=== PATIENT | female | born 1985 | race African-American/Black ===

== ENCOUNTER 2021-02-15 16:18 | Emergency (ER) | payer MEDICAID ==
--- NOTE | 2021-02-15 16:54 | EDM.PDOC ---
ED HPI GENERAL MEDICAL PROBLEM - General Chief Complaint: Abdominal Pain Stated Complaint: PREG AND ABDOMINAL PAIN Time Seen by Provider: 02/15/21 16:25 Source of Information: Reports: Patient, RN Notes Reviewed History Limitations: Reports: No Limitations - History of Present Illness INITIAL COMMENTS - FREE TEXT/NARRATIVE: Patient is a 35 year old female approximately 5 weeks gestation presenting to the ER with c/o intermittent low abdominal pain. She describes it as a dull ache to the bilateral lower and mid abdomen that comes and goes. She noticed that it occurs more frequently when she is lying down. Pain is not present at this time. She denies any nausea, vomiting, or diarrhea. She states that last week she was constipated, but she has been going fairly regularly this week. Denies any abnormal vaginal discharge. She saw her OBGYN, Dr. Tucker, on Friday and had blood work done. At that time, her HCG was 612. She discussed the abdominal pain with Dr. Tucker and was told that if it comes back to come to the ER. She has had no fever or chills. LMP was late December/early January. She reports that she had surgery to remove a "uterine mass" on December 29. Bilateral Lower Abdomen Pain Score (Numeric/FACES): 5 - Related Data Allergies Allergy/AdvReac Type Severity Reaction Status Date / Time No Known Allergies Allergy Verified 02/15/21 16:26 Home Meds: Home Meds . [No Known Home Meds] 02/15/21 [History] ED ROS GENERAL - Review of Systems Review Of Systems: See Below Constitutional: Reports: No Symptoms. Denies: Fever, Chills, Decreased Appetite HEENT: Reports: No Symptoms Respiratory: Reports: No Symptoms Cardiovascular: Reports: No Symptoms Endocrine: Reports: No Symptoms GI/Abdominal: Reports: Abdominal Pain (intermittent, dull, bilateral lower abdominal pain) ED EXAM, GI/ABD - Physical Exam Exam: See Below General Appearance: Alert, WD/WN, No Apparent Distress Respiratory/Chest: No Respiratory Distress, Lungs Clear, Normal Breath Sounds, No Accessory Muscle Use, Chest Non-Tender Cardiovascular: Normal Peripheral Pulses, Regular Rate, Rhythm, No Edema, No Gallop, No JVD, No Murmur, No Rub GI/Abdominal Exam: Normal Bowel Sounds, Soft, Non-Tender, No Organomegaly, No Distention, No Abnormal Bruit, No Mass, Pelvis Stable Neurological: Alert, Oriented, CN II-XII Intact, Normal Cognition, Normal Gait, Normal Reflexes, No Motor/Sensory Deficits Psychiatric: Normal Affect, Normal Mood Course - Vital Signs Last Recorded V/S: Last Vital Signs Temp 97.1 F 02/15/21 16:23 Pulse 100 02/15/21 16:23 Resp 17 02/15/21 16:23 BP 127/75 02/15/21 16:23 Pulse Ox 100 02/15/21 16:23 - Orders/Labs/Meds Labs: Laboratory Tests 02/15/21 02/15/21 02/15/21 Range/Units 16:50 16:50 18:00 WBC 8.60 (3.98-10.04) K/mm3 RBC 4.85 (3.98-5.22) M/mm3 Hgb 11.7 (11.2-15.7) gm/dl Hct 37.0 (34.1-44.9) % MCV 76.3 L (79.4-94.8) fl MCH 24.1 L (25.6-32.2) pg MCHC 31.6 L (32.2-35.5) g/dl RDW Std Deviation 39.3 (36.4-46.3) fL Plt Count 352 (182-369) K/mm3 MPV 9.1 L (9.4-12.3) fl Neut % (Auto) 56.1 (34.0-71.1) % Lymph % (Auto) 34.2 (19.3-51.7) % [place] % (Auto) 8.4 (4.7-12.5) % Eos % (Auto) 0.9 (0.7-5.8) Baso % (Auto) 0.3 (0.1-1.2) % Neut # (Auto) 4.82 (1.56-6.13) K/mm3 Lymph # (Auto) 2.94 (1.18-3.74) K/mm3 [place] # (Auto) 0.72 H (0.24-0.36) K/mm3 Eos # (Auto) 0.08 (0.04-0.36) K/mm3 Baso # (Auto) 0.03 (0.01-0.08) K/mm3 Sodium 140 (136-145) mEq/L Potassium 4.0 (3.5-5.1) mEq/L Chloride 103 (98-107) mEq/L Carbon Dioxide 26 (21-32) mEq/L Anion Gap 15.0 (5-15) BUN 18 (7-18) mg/dL Creatinine 1.0 (0.55-1.02) mg/dL Est Cr Clr Drug Dosing 69.10 mL/min Estimated GFR (MDRD) > 60 (>60) mL/min BUN/Creatinine Ratio 18.0 (14-18) Glucose 96 (74-106) mg/dL Calcium 9.2 (8.5-10.1) mg/dL Total Bilirubin 0.2 (0.2-1.0) mg/dL AST 14 L (15-37) U/L ALT 19 (14-59) U/L Alkaline Phosphatase 51 (46-116) U/L C-Reactive Protein 0.2 (<1.0) mg/dL Total Protein 7.4 (6.4-8.2) g/dl Albumin 3.4 (3.4-5.0) g/dl Globulin 4.0 gm/dL Albumin/Globulin Ratio 0.9 L (1-2) HCG, Quant 1805.0 mIU/mL Urine Color Yellow (Yellow) Urine Appearance Clear (Clear) Urine pH 7.0 (5.0-8.0) Ur Specific [place] 1.025 (1.005-1.030) Urine Protein Negative (Negative) Urine Glucose (UA) Negative (Negative) Urine Ketones Negative (Negative) Urine Occult Blood Negative (Negative) Urine Nitrite Negative (Negative) Urine Bilirubin Negative (Negative) Urine Urobilinogen 0.2 (0.2-1.0) Ur Leukocyte Esterase Negative (Negative) Urine RBC 0-5 (0-5) /hpf Urine WBC 0-5 (0-5) /hpf Ur Squamous Epith Cells 0-5 (0-5) /hpf Urine Bacteria Few (FEW) /hpf Urine Mucus Not seen (FEW) /hpf - Re-Assessments/Exams Free Text/Narrative Re-Assessment/Exam: Patient is a 35 year old aproximately 5 weeks gestation presenting to the ER with c/o intermittent, dull, bilateral lower abdominal pain. Pain is not present at the time of the exam. She states that she was constipated last week but has been regular this week. Denies fever, chills, nausea, vomiting, or diarrhea. I have ordered CBC, CMP, CMP, quantitative HCG, urinalysis, and a transvaginal pelvic u/s. 02/15/21 18:43 Hematology is grossly unremarkable. hCG is elevated at 1005 which is an increase from the 612 that it was on Friday. CRP and WBCs are normal. Urinalysis negative for infection. Pression of the OB ultrasound is as follows: 1. No intrauterine gestation sac or adnexal findings are seen. 2. Small corpus luteum cyst within the left ovary measuring 2.3 cm. Discussed findings with patient. While the exact cause of her intermittent pain is not known, I suspect that she could be suffering from constipation, however given her we are unable to complete an abdominal x-ray. She verbalized that she does have magnesium citrate at home. Recommend that she take this to see if having bowel movements improve her symptoms. Discussed if you should have worsening symptoms, she should return to ER otherwise follow-up with Dr. Giron. Discharge instructions as documented. Departure - Departure Time of Disposition: 18:43 Disposition: Home, Self-Care 01 Condition: Good Clinical Impression: Abdominal pain Qualifiers: Abdominal location: lower abdomen, unspecified Qualified Code(s): R10.30 - Lower abdominal pain, unspecified - Discharge Information *PRESCRIPTION DRUG MONITORING PROGRAM REVIEWED*: No *COPY OF PRESCRIPTION DRUG MONITORING REPORT IN PATIENT CAT[place]: No Instructions: Abdominal Pain, Adult, [id number] Referrals: Norma Velasquez NP [Primary Care Provider] - Forms: ED Department Discharge Additional Instructions: You were seen in the emergency department for evaluation of intermittent lower abdominal pain. Workup included blood work and a pelvic u/s. Results of your workup were found to be normal. Your HCG increased to 1,805. While the exact cause of your intermittent pain is not known, it is likely you are suffering from constipation. Recommend taking the bottle of magnesium citrate that your have at home. If you continue to have occasional pain, recommend followup with your OBGYN. If you should experience any new or worsening symptoms of concern, please not hesitate to return to the emergency department for reevaluation. Sepsis Event Note (ED) - Evaluation Sepsis Screening Result: No Definite Risk - Focused Exam Vital Signs: Vital Signs Temp Pulse Resp BP Pulse Ox 02/15/21 16:23 97.1 F 100 17 127/75 100
--- NOTE | 2021-02-15 17:28 | US ---
First trimester obstetrical ultrasound: Multiple real-time images were obtained transvaginally. No intrauterine gestational sac is seen. No adnexal abnormalities are noted. Left ovary shows a small cyst measuring 2.3 cm which is felt to represent a corpus luteum cyst. Right ovary is unremarkable. Impression: 1. No intrauterine gestational sac or adnexal findings are seen. 2. Small corpus luteum cyst within the left ovary measuring 2.3 cm. Diagnostic code #2
== END 2021-02-15 18:53 | disposition home or self-care (01) ==
LOC: JD.ED 16:18
DX: O99.891 Other specified diseases and conditions complicating pregnancy (principal); R10.31 Right lower quadrant pain; R10.32 Left lower quadrant pain; Z3A.01 Less than 8 weeks gestation of pregnancy
CPT/HCPCS: 36415; 76817; 76817-26; 80053; 81001; 84702; 85025; 86140; 99284; 99284-25

== ENCOUNTER 2021-02-23 19:15 | Emergency (ER) | payer MEDICAID ==
--- NOTE | 2021-02-23 19:41 | EDM.PDOC ---
ED HPI GENERAL MEDICAL PROBLEM - General Chief Complaint: Abdominal Pain Stated Complaint: ABDOMINAL PAIN Time Seen by Provider: 02/23/21 19:26 Source of Information: Reports: Patient History Limitations: Reports: No Limitations - History of Present Illness INITIAL COMMENTS - FREE TEXT/NARRATIVE: This is a 35-year-old female. She was here on the due to lower abdominal pain. She is thought to be approximately 5 weeks on the which would make her about 6 weeks tonight. She is a 2 para 1. On the her beta-hCG was [address] Giron and then on the her beta-hCG was 1805. When they did the ultrasound they did not see a get stational sac and she had a left corpus luteum cyst noted. She says today she has been having the pain since this morning and she had to do some orientation of some sort and did not get done until about now so she comes to the ER because of the pain. She does not appear to be in acute distress. She denies any fever or chills. Denies any nausea or vomiting. She denies any vaginal discharge. She denies any urinary symptoms. She was told to use mag citrate on the which she says she did and she has been having normal nonhard stools. Middle Abdomen Pain Score (Numeric/FACES): 7 - Related Data Allergies Allergy/AdvReac Type Severity Reaction Status Date / Time No Known Allergies Allergy Verified 02/23/21 19:25 Home Meds: Home Meds cephALEXin [Keflex] 500 mg PO Q8H #21 cap 02/23/21 [Rx] Past Medical History - Past Surgical History Female Surgical History: Reports: Other (See Below) Other Female Surgeries/Procedures: uterine mass removed Social & Family History - Family History Family Medical History: No Pertinent Family History - Caffeine Use Caffeine Use: Reports: None ED ROS GENERAL - Review of Systems Review Of Systems: See Below Constitutional: Denies: Fever, Chills HEENT: Reports: No Symptoms Respiratory: Reports: No Symptoms Cardiovascular: Reports: No Symptoms Endocrine: Reports: No Symptoms GI/Abdominal: Reports: Abdominal Pain. Denies: Constipation, Diarrhea, Nausea, Vomiting : Denies: Discharge, Dysuria, Flank Pain Musculoskeletal: Reports: No Symptoms Skin: Reports: No Symptoms Neurological: Reports: No Symptoms Psychiatric: Reports: No Symptoms Hematologic/Lymphatic: Reports: No Symptoms ED EXAM, GI/ABD - Physical Exam Exam: See Below Exam Limited By: No Limitations General Appearance: Alert, WD/WN, No Apparent Distress Eyes: Bilateral: Normal Appearance Ears: Normal External Exam Nose: Normal Inspection Throat/Mouth: Normal Lips, Normal Voice, No Airway Compromise Head: Normocephalic Neck: Supple Respiratory/Chest: No Respiratory Distress, Lungs Clear, Normal Breath Sounds Cardiovascular: Regular Rate, Rhythm, No Murmur GI/Abdominal Exam: Soft, Other (Lanes of tenderness in the suprapubic area on palpation but there is no masses noted there is no rebound no peritoneal signs. Even though she says the pain radiates to the right lower quadrant and left lower quadrant when I palpate those areas they do not appear to be very tender. No upper Abd pain) Back Exam: Normal Inspection, Full Range of Motion Extremities: Normal Inspection, Normal Range of Motion. No: Pedal Edema Neurological: Alert, Oriented Psychiatric: Normal Affect, Normal Mood Skin Exam: Warm, Dry Course - Vital Signs Last Recorded V/S: Last Vital Signs Temp 97.6 F 02/23/21 19:31 Pulse 102 H 02/23/21 19:31 Resp 18 02/23/21 19:31 BP 126/74 02/23/21 19:31 Pulse Ox 98 02/23/21 19:31 - Orders/Labs/Meds Orders: Active Orders 24 hr Category Date Time Status OB Transvaginal [US] Stat Exams 02/23/21 19:42 Taken Labs: Laboratory Tests 02/23/21 02/23/21 02/23/21 Range/Units 19:50 20:03 20:03 WBC 9.46 (3.98-10.04) K/mm3 RBC 5.14 (3.98-5.22) M/mm3 Hgb 12.4 (11.2-15.7) gm/dl Hct 38.8 (34.1-44.9) % MCV 75.5 L (79.4-94.8) fl MCH 24.1 L (25.6-32.2) pg MCHC 32.0 L (32.2-35.5) g/dl RDW Std Deviation 40.1 (36.4-46.3) fL Plt Count 312 (182-369) K/mm3 MPV 10.0 (9.4-12.3) fl Neut % (Auto) 65.3 (34.0-71.1) % Lymph % (Auto) 26.4 (19.3-51.7) % [place] % (Auto) 6.8 (4.7-12.5) % Eos % (Auto) 1.1 (0.7-5.8) Baso % (Auto) 0.2 (0.1-1.2) % Neut # (Auto) 6.18 H (1.56-6.13) K/mm3 Lymph # (Auto) 2.50 (1.18-3.74) K/mm3 [place] # (Auto) 0.64 H (0.24-0.36) K/mm3 Eos # (Auto) 0.10 (0.04-0.36) K/mm3 Baso # (Auto) 0.02 (0.01-0.08) K/mm3 Sodium 141 (136-145) mEq/L Potassium 3.8 (3.5-5.1) mEq/L Chloride 104 (98-107) mEq/L Carbon Dioxide 27 (21-32) mEq/L Anion Gap 13.8 (5-15) BUN 20 H (7-18) mg/dL Creatinine 1.0 (0.55-1.02) mg/dL Est Cr Clr Drug Dosing 69.10 mL/min Estimated GFR (MDRD) > 60 (>60) mL/min BUN/Creatinine Ratio 20.0 H (14-18) Glucose 114 H (74-106) mg/dL Calcium 9.0 (8.5-10.1) mg/dL Total Bilirubin 0.2 (0.2-1.0) mg/dL AST 16 (15-37) U/L ALT 16 (14-59) U/L Alkaline Phosphatase 51 (46-116) U/L C-Reactive Protein <0.2 (<1.0) mg/dL Total Protein 7.2 (6.4-8.2) g/dl Albumin 3.4 (3.4-5.0) g/dl Globulin 3.8 gm/dL Albumin/Globulin Ratio 0.9 L (1-2) HCG, Quant 4321.0 mIU/mL Urine Color Yellow (Yellow) Urine Appearance Slt cloudy H (Clear) Urine pH 6.0 (5.0-8.0) Ur Specific [place] > or = 1.030 (1.005-1.030) Urine Protein Negative (Negative) Urine Glucose (UA) Negative (Negative) Urine Ketones Negative (Negative) Urine Occult Blood Negative (Negative) Urine Nitrite Negative (Negative) Urine Bilirubin Negative (Negative) Urine Urobilinogen 0.2 (0.2-1.0) Ur Leukocyte Esterase Trace H (Negative) Urine RBC 0-5 (0-5) /hpf Urine WBC 10-20 H (0-5) /hpf Ur Squamous Epith Cells 5-10 H (0-5) /hpf Urine Bacteria Moderate H (FEW) /hpf Urine Mucus Few (FEW) /hpf - Radiology Interpretation Free Text/Narrative:: The ultrasound tonight suggests an early gestational sac in the uterine fundal endometrial cavity that looks like is about 5 weeks gestational age. The left ovarian cyst is still present. There is no pelvic fluid and there is no ovarian torsion. - Re-Assessments/Exams Free Text/Narrative Re-Assessment/Exam: 02/23/21 21:34 Blood work appears to be normal. Her beta hCG on 02/12 was 612, 02/15 it was 1805, tonight 02/22 it is 4321. 02/23/21 21:35 Patient's urine suggest a mild urinary tract infection as well. 02/23/21 22:09 I spoke to the patient regarding the ultrasound results that she is approximately 5 weeks and the get stational sac can be seen in the uterus. I also let her know that her beta-hCG was 4321. She needs to follow-up with Dr. Giron. I will provide some antibiotics for her urinary tract infection. Departure - Departure Time of Disposition: 22:10 Disposition: Home, Self-Care 01 Condition: Good Clinical Impression: Normal intrauterine on ultrasound in first trimester, Bilateral lower abdominal discomfort Urinary tract infection Qualifiers: Urinary tract infection type: acute cystitis Hematuria presence: without hematuria Qualified Code(s): N30.00 - Acute cystitis without hematuria - Discharge Information *PRESCRIPTION DRUG MONITORING PROGRAM REVIEWED*: Not Applicable *COPY OF PRESCRIPTION DRUG MONITORING REPORT IN PATIENT [place]: Not Applicable Prescriptions: cephALEXin [Keflex] 500 mg PO Q8H #21 cap Instructions: First Trimester of , [id number], Urinary Tract Infection, Adult, [id number] Referrals: Sybil Tucker MD [Physician] - Forms: ED Department Discharge Additional Instructions: You were seen in the emergency room for lower abdominal pain. We found that you are 5 weeks and it is in the uterus where it needs to be. We also found that you have a urinary tract infection and that you need to drink more water because your urine is very concentrated. Get the antibiotics and take them 3 times a day until they are finished to help with the urinary tract infection. Follow-up with Dr. Giron your OB doctor recheck of your and the urinary tract infection, return to the ER if needed. Sepsis Event Note (ED) - Evaluation Sepsis Screening Result: No Definite Risk - Focused Exam Vital Signs: Vital Signs Temp Pulse Resp BP Pulse Ox 02/23/21 19:31 97.6 F 102 H 18 126/74 98 - My Orders Last 24 Hours: My Active Orders 02/23/21 19:42 OB Transvaginal [US] Stat - Assessment/Plan Last 24 Hours: My Active Orders 02/23/21 19:42 OB Transvaginal [US] Stat
--- NOTE | 2021-02-25 11:51 | US ---
First trimester obstetrical ultrasound: Multiple real-time images were obtained transvaginally. Uterus is anteverted. Possible minimal gestational sac is noted measuring about 0.34 cm correlating to 5 weeks 0 days. Sac is too small to identify any other components. Ovaries appear within normal limits for the patient's age. Impression: 1. Very small gestational sac correlating to approximately 5 weeks and 0 days. 2. Consider repeating ultrasound exam in 11-14 days to confirm normal developing . Diagnostic code #2 I agree with preliminary report from [facility], finalized on 02/23/21, 10:58 PM CDT
== END 2021-02-23 22:25 | disposition home or self-care (01) ==
LOC: JD.ED 19:15
DX: O23.11 Infections of bladder in pregnancy, first trimester (principal); Z3A.01 Less than 8 weeks gestation of pregnancy
CPT/HCPCS: 36415; 76817; 76817-26; 80053; 81001; 84702; 85025; 86140; 99283; 99284-25

== ENCOUNTER 2021-03-01 18:29 | Emergency (ER) | payer MEDICAID ==
--- NOTE | 2021-03-01 19:33 | EDM.PDOC ---
ED HPI GENERAL MEDICAL PROBLEM - General Chief Complaint: [facility] Problem Stated Complaint: 6 WEEKS PREG BLEEDING AND CRAMPING Time Seen by Provider: 03/01/21 19:11 Source of Information: Reports: Patient, RN Notes Reviewed History Limitations: Reports: No Limitations - History of Present Illness INITIAL COMMENTS - FREE TEXT/NARRATIVE: Patient is a 35-year-old female who presents to the ED for the evaluation of her and vaginal bleeding and low abdomen cramping. Patient states she is roughly 6 weeks , she is a G2, P1, CHUR[facility] is Dr. Tucker. Patient notes that she was seen last week in this ER for-like symptoms when she was around 5 weeks , she did have ultrasound done at that time, did demonstrate a small gestational sac. Patient notes things have been okay, until she developed some vaginal bleeding, when she went to the bathroom, when she wiped she noticed some blood on the toilet paper. She states that she may have passed 1 small clot after showering today. Patient states that she works for [employer], and she usually gets up around 3 or 4 in the morning, and after about 2 or 3 hours of being at work, she developed low back pain. She is not sure if this is complicating things. Patient denies any dysuria, frequency or urgency. She does state that she is having some lower abdomen pain, but it does not seem to be intensifying. She has had no fevers or chills, cough or shortness of breath, nausea/vomiting/diarrhea. Lower Abdomen Pain Score (Numeric/FACES): 3 - Related Data Allergies Allergy/AdvReac Type Severity Reaction Status Date / Time No Known Allergies Allergy Verified 03/01/21 19:06 Home Meds: Home Meds cephALEXin [Keflex] 500 mg PO Q8H #21 cap 02/23/21 [Rx] Past Medical History : 2 Para: 1 LMP (Approximate): - Past Surgical History Female Surgical History: Reports: Other (See Below) Other Female Surgeries/Procedures: uterine mass removed Social & Family History - Family History Family Medical History: No Pertinent Family History - Tobacco Use Tobacco Use Status *Q: Never Tobacco User Second Hand Smoke Exposure: No - Caffeine Use Caffeine Use: Reports: None - Recreational Drug Use Recreational Drug Use: No ED ROS GENERAL - Review of Systems Review Of Systems: Comprehensive ROS is negative, except as noted in HPI. ED EXAM - Physical Exam Exam: See Below Exam Limited By: No Limitations General Appearance: Alert, WD/WN, No Apparent Distress Respiratory/Chest: No Respiratory Distress, Lungs Clear, Normal Breath Sounds, No Accessory Muscle Use, Chest Non-Tender Cardiovascular: Normal Peripheral Pulses, Regular Rate, Rhythm, No Edema GI/Abdominal Exam: Normal Bowel Sounds, Soft, Non-Tender, No Distention, No Mass Heart Tones: Not Foster Movement: Not Appreciated Neurological: Alert, Oriented, Normal Cognition, No Motor/Sensory Deficits Psychiatric: Normal Affect, Normal Mood Skin Exam: Warm, Dry, Intact, Normal Color, No Rash Course - Vital Signs Last Recorded V/S: Last Vital Signs Temp 98.5 F 03/01/21 19:00 Pulse 90 03/01/21 19:00 Resp 16 03/01/21 19:00 BP 121/71 03/01/21 19:00 Pulse Ox 100 03/01/21 19:00 - Orders/Labs/Meds Orders: Active Orders 24 hr Category Date Time Status ABO/RH TYPE [BBK] Stat Lab 03/01/21 19:30 Received Labs: Laboratory Tests 03/01/21 03/01/21 Range/Units 19:30 20:06 HCG, Quant 6600.0 mIU/mL Urine Color Yellow (Yellow) Urine Appearance Clear (Clear) Urine pH 8.5 H (5.0-8.0) Ur Specific [place] 1.020 (1.005-1.030) Urine Protein Trace H (Negative) Urine Glucose (UA) Negative (Negative) Urine Ketones Negative (Negative) Urine Occult Blood Negative (Negative) Urine Nitrite Negative (Negative) Urine Bilirubin Negative (Negative) Urine Urobilinogen 0.2 (0.2-1.0) Ur Leukocyte Esterase Negative (Negative) Urine RBC 0-5 (0-5) /hpf Urine WBC 0-5 (0-5) /hpf Ur Squamous Epith Cells 0-5 (0-5) /hpf Urine Bacteria Few (FEW) /hpf Urine Mucus Few (FEW) /hpf - Re-Assessments/Exams Free Text/Narrative Re-Assessment/Exam: 03/01/21 19:33 Patient presents to the ED for evaluation of her vaginal bleeding and . We will go ahead and get a quantitative hCG for today's purposes, run a urinalysis that she provided a sample. And we will repeat a transvaginal ultrasound. 03/01/21 19:37 Review of the patient's last visit demonstrated that she had a small UTI and was placed on a course of Keflex 500 mg 3 times daily for 7 days. Her hCG at last visit was 4321. 03/01/21 20:28 The patient's ultrasound has come back, there is a small intrauterine gestational sac, it slightly increased from prior exam but no pole or yolk sac is seen at this time yet this does not confirm a normal . The patient's hCG is 6600, patient was seen here roughly 5 days ago. 03/01/21 20:37 I did call and talk with Dr. Bender our [facility] on-call, and he states that this is not an uncommon finding. He does note that she should probably have a repeat ultrasound and appointment with Dr. Tucker may be next week Friday or the or . I do not see any sort of blood typing that has been done in the past while she has been here we will go ahead and do a quick ABO Rh type on the blood that has already been taken from her. Departure - Departure Time of Disposition: 20:38 Disposition: Home, Self-Care 01 Condition: Good Clinical Impression: Vaginal bleeding in - Discharge Information *PRESCRIPTION DRUG MONITORING PROGRAM REVIEWED*: No *COPY OF PRESCRIPTION DRUG MONITORING REPORT IN PATIENT [place]: No Instructions: Abdominal Pain During , [id number] Referrals: Sybil Tucker MD [Primary Care Provider] - Forms: ED Department Discharge, ED Return to Work/School Form Additional Instructions: You were evaluated in the ER today regarding your abdominal pain/vaginal bleeding in . You did have some labs drawn, your hCG level was 6600 , your blood type is ( ). Your ultrasound demonstrated an intrauterine gestational sac; but this is somewhat early and a heartbeat was not identified at today's visit. Your case was discussed with our on-call [facility] doctor, and he does recommend that you schedule an appoint with Dr. Tucker for next week Friday or , this would be March 07 or for repeat ultrasound. Recommend that you do not lift anything heavier than a gallon of milk (5 lbs), do not engage in sexual activities, try to get as much pelvic rest as possible for the next few days. Please try not to exert yourself, rest and relax, and take it easy. If you are bleeding through more than 1-2 maxi pads every couple hours, this would be cause for concern to return to the ER for immediate management. Please return to the ED at any time if your symptoms change or worsen. Sepsis Event Note (ED) - Evaluation Sepsis Screening Result: No Definite Risk - Focused Exam Vital Signs: Vital Signs Temp Pulse Resp BP Pulse Ox 03/01/21 19:00 98.5 F 90 16 121/71 100 - My Orders Last 24 Hours: My Active Orders 03/01/21 19:30 ABO/RH TYPE [BBK] Stat - Assessment/Plan Last 24 Hours: My Active Orders 03/01/21 19:30 ABO/RH TYPE [BBK] Stat
--- NOTE | 2021-03-01 20:25 | US ---
First trimester obstetrical ultrasound: Multiple real-time images were obtained transvaginally. Comparison: Prior study of 02/23/21. Single intrauterine gestational sac is seen. Sac size is slightly increased in size from prior study but no pole or yolk sac is seen. Both maternal ovaries are seen and appear within normal limits. Measurements: Mean sac diameter: 6 mm - out of range Impression: 1. Small intrauterine gestational sac. Gestational sac has slightly increased from prior exam. No pole or yolk sac is seen. This does not confirm a normal at this time. 2. No additional abnormality is appreciated. Diagnostic code #3
== END 2021-03-01 20:59 | disposition home or self-care (01) ==
LOC: JD.ED 18:29
DX: O20.9 Hemorrhage in early pregnancy, unspecified (principal); Z3A.01 Less than 8 weeks gestation of pregnancy
CPT/HCPCS: 36415; 76817; 76817-26; 81001; 84702; 86900; 86901; 99283; 99284-25

== ENCOUNTER 2021-03-03 12:01 | Emergency (ER) | payer MEDICAID ==
--- NOTE | 2021-03-03 14:26 | EDM.PDOC ---
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 The patient was evaluated in this emergency department 2 days ago. Labs and transvaginal ultrasound were completed. Patient returns today for similar complaints. She states that the bleeding has not gotten any heavier and the cramps have not worsened. Patient states she is going through about 1 pantiliner every 3 hours. She states she does have some mild abdominal cramping and has not taken anything for the discomfort. She denies any recent fever, chills, nausea, vomiting or diarrhea. She denies passing any clots per vagina. Pelvic Pain Score (Numeric/FACES): 6 - Related Data Allergies Allergy/AdvReac Type Severity Reaction Status Date / Time No Known Allergies Allergy Verified 03/03/21 12:26 Home Meds: Home Meds cephALEXin [Keflex] 500 mg PO Q8H #21 cap 02/23/21 [Rx] Past Medical History - Past Surgical History Female Surgical History: Reports: Other (See Below) Other Female Surgeries/Procedures: uterine mass removed Social & Family History - Family History Family Medical History: No Pertinent Family History - Tobacco Use Tobacco Use Status *Q: Never Tobacco User Second Hand Smoke Exposure: No - Caffeine Use Caffeine Use: Reports: None - Recreational Drug Use Recreational Drug Use: No ED ROS GENERAL - Review of Systems Review Of Systems: Comprehensive ROS is negative, except as noted in HPI. ED EXAM - Physical Exam Exam: See Below Exam Limited By: No Limitations General Appearance: Alert, WD/WN, No Apparent Distress Ears: Normal External Exam, Hearing Grossly Normal Nose: Normal Inspection Throat/Mouth: Normal Inspection, Normal Lips, Normal Voice, No Airway Compromise Head: Atraumatic, Normocephalic Neck: Normal Inspection, Supple, Non-Tender, Full Range of Motion Respiratory/Chest: No Respiratory Distress, Lungs Clear, Normal Breath Sounds, No Accessory Muscle Use, Chest Non-Tender Cardiovascular: Normal Peripheral Pulses, Regular Rate, Rhythm, No Edema, No Murmur GI/Abdominal Exam: Normal Bowel Sounds, Soft, Non-Tender, No Distention Rectal Exam: Deferred (Female) Exam: Other (exam not compleded due to visit two days ago in the ED) Extremities: Normal Inspection, Normal Range of Motion, Non-Tender, No Pedal Edema, Normal Capillary Refill Neurological: Alert, Oriented, Normal Cognition Psychiatric: Normal Affect, Normal Mood Skin Exam: Warm, Dry, Intact, Normal Color, No Rash Lymphatic: No Adenopathy Course - Vital Signs Text/Narrative:: As patient was recently evaluated in the emergency department 2 days ago and had labs and transvaginal ultrasound completed. I will repeat lab studies today however I do not feel it is prudent to repeat the transvaginal ultrasound as the patient symptoms have not worsened or changed. 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 At the time of my assessment patient is not tachycardic or hypotensive. Last Recorded V/S: Last Vital Signs Temp 97.7 F 03/03/21 12:23 Pulse 82 03/03/21 12:23 Resp 18 03/03/21 12:23 BP 121/80 03/03/21 12:23 Pulse Ox 100 03/03/21 12:23 - Orders/Labs/Meds Labs: Laboratory Tests 03/03/21 03/03/21 03/03/21 Range/Units 12:53 12:53 12:53 WBC 6.11 (3.98-10.04) K/mm3 RBC 5.33 H (3.98-5.22) M/mm3 Hgb 12.8 (11.2-15.7) gm/dl Hct 40.7 (34.1-44.9) % MCV 76.4 L (79.4-94.8) fl MCH 24.0 L (25.6-32.2) pg MCHC 31.4 L (32.2-35.5) g/dl RDW Std Deviation 40.2 (36.4-46.3) fL Plt Count 313 (182-369) K/mm3 MPV 9.0 L (9.4-12.3) fl Neut % (Auto) 61.0 (34.0-71.1) % Lymph % (Auto) 29.8 (19.3-51.7) % [place] % (Auto) 7.7 (4.7-12.5) % Eos % (Auto) 1.1 (0.7-5.8) Baso % (Auto) 0.2 (0.1-1.2) % Neut # (Auto) 3.73 (1.56-6.13) K/mm3 Lymph # (Auto) 1.82 (1.18-3.74) K/mm3 [place] # (Auto) 0.47 H (0.24-0.36) K/mm3 Eos # (Auto) 0.07 (0.04-0.36) K/mm3 Baso # (Auto) 0.01 (0.01-0.08) K/mm3 HCG, Quant 7568.0 mIU/mL Urine Color (Yellow) Urine Appearance (Clear) Urine pH (5.0-8.0) Ur Specific [place] (1.005-1.030) Urine Protein (Negative) Urine Glucose (UA) (Negative) Urine Ketones (Negative) Urine Occult Blood (Negative) Urine Nitrite (Negative) Urine Bilirubin (Negative) Urine Urobilinogen (0.2-1.0) Ur Leukocyte Esterase (Negative) Urine RBC (0-5) /hpf Urine WBC (0-5) /hpf Ur Epithelial Cells (0-5) /hpf Urine Bacteria (FEW) /hpf Urine Mucus (FEW) /hpf Blood Type A POSITIVE 03/03/21 Range/Units 13:40 WBC (3.98-10.04) K/mm3 RBC (3.98-5.22) M/mm3 Hgb (11.2-15.7) gm/dl Hct (34.1-44.9) % MCV (79.4-94.8) fl MCH (25.6-32.2) pg MCHC (32.2-35.5) g/dl RDW Std Deviation (36.4-46.3) fL Plt Count (182-369) K/mm3 MPV (9.4-12.3) fl Neut % (Auto) (34.0-71.1) % Lymph % (Auto) (19.3-51.7) % [place] % (Auto) (4.7-12.5) % Eos % (Auto) (0.7-5.8) Baso % (Auto) (0.1-1.2) % Neut # (Auto) (1.56-6.13) K/mm3 Lymph # (Auto) (1.18-3.74) K/mm3 [place] # (Auto) (0.24-0.36) K/mm3 Eos # (Auto) (0.04-0.36) K/mm3 Baso # (Auto) (0.01-0.08) K/mm3 HCG, Quant mIU/mL Urine Color Yellow (Yellow) Urine Appearance Clear (Clear) Urine pH 6.0 (5.0-8.0) Ur Specific [place] 1.025 (1.005-1.030) Urine Protein Negative (Negative) Urine Glucose (UA) Negative (Negative) Urine Ketones Negative (Negative) Urine Occult Blood 2+ H (Negative) Urine Nitrite Negative (Negative) Urine Bilirubin Negative (Negative) Urine Urobilinogen 0.2 (0.2-1.0) Ur Leukocyte Esterase Negative (Negative) Urine RBC 5-10 H (0-5) /hpf Urine WBC 0-5 (0-5) /hpf Ur Epithelial Cells 0-5 (0-5) /hpf Urine Bacteria Moderate H (FEW) /hpf Urine Mucus Rare (FEW) /hpf Blood Type - Re-Assessments/Exams Free Text/Narrative Re-Assessment/Exam: 03/03/21 14:22 Hematology reveals a WBC of 6.11, hemoglobin 12.8, hematocrit 40.7, quantitative hCG is 7568 (HCG from 2 days ago was 6600) Urinalysis shows 2+ blood and 5-10 RBC. At this time patient is only spotting. She states she is going through a panty liner every 2-3 hours. Recommend she be discharged to home with follow-up in her appointment be kept with Dr. Giron Friday of this week. 03/03/21 14:29 The patient will be discharged home with recommendations that she go home and rest. Should her cramping decrease in severity or bleeding increased to 3-4 pads every hour with clots it is strongly recommended that she return to the emergency department. Departure - Departure Time of Disposition: 14:24 Disposition: Home, Self-Care 01 Condition: Good Clinical Impression: Vaginal bleeding in - Discharge Information Referrals: Sybil Tucker MD [Primary Care Provider] - Forms: ED Department Discharge Additional Instructions: You were seen in the emergency department today with complaints of vaginal bleeding at 6 weeks into your . Lab work was completed as well as your hCG levels. These levels have increased since you were seen 2 days ago in the emergency department. You have been discharged to home. Recommend that you go home and rest, put your feet up, do not do any strenuous activity which includes heavy lifting greater than 10 pounds or sexual intercourse. Drink plenty of fluids. may take Tylenol 650 mg every 4 hours as needed for the cramping. Should your cramping become severe and is not relieved by the Tylenol or you start going through 3-4 pads per hour with clots, it is strongly recommended that you return to the emergency department for reevaluation. Otherwise keep your scheduled appointment with Dr. Tucker on Friday of this week for further evaluation. Sepsis Event Note (ED) - Evaluation Sepsis Screening Result: No Definite Risk - Focused Exam Vital Signs: Vital Signs Temp Pulse Resp BP Pulse Ox 03/03/21 12:23 97.7 F 82 18 121/80 100
== END 2021-03-03 15:00 | disposition home or self-care (01) ==
LOC: JD.ED 12:01
DX: O20.9 Hemorrhage in early pregnancy, unspecified (principal); Z3A.01 Less than 8 weeks gestation of pregnancy
CPT/HCPCS: 36415; 81001; 84702; 85025; 86900; 86901; 99283; 99284

== ENCOUNTER 2021-03-05 14:58 | Emergency (ER) | payer MEDICAID ==
--- NOTE | 2021-03-05 17:28 | EDM.PDOC ---
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 She is at 6 weeks gestation. She has been here a few times in the past week. Her last visit was 2 says ago. She has been having spotting. She had an US a couple days ago and it showed a possible gestational sac but no pole. Her HCG was 7,568. She left and passed a few clots and possibly some tissue. She has been bleeding heavily since. She soaks a pad every 2 hours and she has some cramping. Onset: Gradual Duration: Day(s): Location: Reports: Pelvis Quality: Reports: Other (cramping) Severity: Moderate Improves with: Reports: None Worsens with: Reports: None Associated Symptoms: Reports: No Other Symptoms - Related Data Allergies Allergy/AdvReac Type Severity Reaction Status Date / Time No Known Allergies Allergy Verified 03/05/21 15:27 Home Meds: Home Meds cephALEXin [Keflex] 500 mg PO Q8H #21 cap 02/23/21 [Rx] Past Medical History - Past Surgical History Female Surgical History: Reports: Other (See Below) Other Female Surgeries/Procedures: uterine mass removed Social & Family History - Family History Family Medical History: No Pertinent Family History - Tobacco Use Tobacco Use Status *Q: Never Tobacco User - Caffeine Use Caffeine Use: Reports: None - Recreational Drug Use Recreational Drug Use: No ED ROS GENERAL - Review of Systems Review Of Systems: See Below Constitutional: Reports: No Symptoms HEENT: Reports: No Symptoms Respiratory: Reports: No Symptoms Cardiovascular: Reports: No Symptoms Endocrine: Reports: No Symptoms GI/Abdominal: Reports: No Symptoms : Reports: Other (pelvic pain) ED EXAM - Physical Exam Exam: See Below Exam Limited By: No Limitations General Appearance: Alert, No Apparent Distress Ears: Normal External Exam Nose: Normal Inspection Head: Atraumatic, Normocephalic Neck: Normal Inspection Respiratory/Chest: No Respiratory Distress, Lungs Clear, Normal Breath Sounds Cardiovascular: Regular Rate, Rhythm, No Edema, No Murmur GI/Abdominal Exam: Soft, Non-Tender, No Organomegaly, No Mass Course - Vital Signs Last Recorded V/S: Last Vital Signs Temp 98.2 F 03/05/21 15:25 Pulse 89 03/05/21 15:25 Resp 15 03/05/21 15:25 BP 130/82 03/05/21 15:25 Pulse Ox 98 03/05/21 15:25 - Orders/Labs/Meds Orders: Active Orders 24 hr Category Date Time Status OB Transvaginal [US] Stat Exams 03/05/21 15:37 Taken Labs: Laboratory Tests 03/05/21 03/05/21 03/05/21 Range/Units 15:49 15:49 15:49 WBC 6.51 (3.98-10.04) K/mm3 RBC 5.11 (3.98-5.22) M/mm3 Hgb 12.3 (11.2-15.7) gm/dl Hct 39.3 (34.1-44.9) % MCV 76.9 L (79.4-94.8) fl MCH 24.1 L (25.6-32.2) pg MCHC 31.3 L (32.2-35.5) g/dl RDW Std Deviation 40.7 (36.4-46.3) fL Plt Count 310 (182-369) K/mm3 MPV 9.2 L (9.4-12.3) fl Neut % (Auto) 60.0 (34.0-71.1) % Lymph % (Auto) 31.8 (19.3-51.7) % [place] % (Auto) 6.8 (4.7-12.5) % Eos % (Auto) 0.9 (0.7-5.8) Baso % (Auto) 0.3 (0.1-1.2) % Neut # (Auto) 3.91 (1.56-6.13) K/mm3 Lymph # (Auto) 2.07 (1.18-3.74) K/mm3 [place] # (Auto) 0.44 H (0.24-0.36) K/mm3 Eos # (Auto) 0.06 (0.04-0.36) K/mm3 Baso # (Auto) 0.02 (0.01-0.08) K/mm3 HCG, Quant 1439.0 mIU/mL Blood Type A POSITIVE - Re-Assessments/Exams Free Text/Narrative Re-Assessment/Exam: 03/05/21 17:43 I ordered labs and an US. Her CBC looks good. She is A positive. Her HCG today is 1,439 and that is down from the 7,568. Her US shows interval spontaneous appears to have occurred. I called Dr Tucker and she will follow up with her on Friday as already planned. Departure - Departure Time of Disposition: 17:50 Disposition: Home, Self-Care 01 Condition: Good Clinical Impression: Complete - Discharge Information *PRESCRIPTION DRUG MONITORING PROGRAM REVIEWED*: Not Applicable *COPY OF PRESCRIPTION DRUG MONITORING REPORT IN PATIENT [place]: Not Applicable Referrals: Sybil Tucker MD [Primary Care Provider] - 2 Days Forms: ED Department Discharge Additional Instructions: Drink plenty of fluids. Take tylenol or motrin for pain. Follow up with Dr Tucker on Friday. Please return if you are worse. Sepsis Event Note (ED) - Evaluation Sepsis Screening Result: No Definite Risk - Focused Exam Vital Signs: Vital Signs Temp Pulse Resp BP Pulse Ox 03/05/21 15:25 98.2 F 89 15 130/82 98 - My Orders Last 24 Hours: My Active Orders 03/05/21 15:37 OB Transvaginal [US] Stat - Assessment/Plan Last 24 Hours: My Active Orders 03/05/21 15:37 OB Transvaginal [US] Stat
--- NOTE | 2021-03-06 08:59 | US ---
First trimester obstetrical ultrasound: Multiple real-time images were obtained transvaginally. Comparison: Previous study of 03/01/21. Findings: No intrauterine gestational sac is seen as noted on prior exam. No myometrial abnormality is appreciated. Right and left ovaries appear within normal limits. No free fluid is seen. Impression: 1. No intrauterine gestational sac is seen as was noted on prior exam. 2. No abnormality is seen on ultrasound study of the pelvis. Diagnostic code #1 I agree with preliminary report from roberto, finalized on 03/05/21, 5:32 PM CDT
== END 2021-03-05 17:55 | disposition home or self-care (01) ==
LOC: JD.ED 14:58
DX: O03.9 Complete or unspecified spontaneous abortion without complication (principal)
CPT/HCPCS: 36415; 76817; 76817-26; 84702; 85025; 86900; 86901; 99283; 99284-25

== ENCOUNTER 2022-02-24 07:09 | Emergency (ER) | payer MEDICAID | END 2022-02-24 08:20 | disposition home or self-care (01) | LOC: JD.ED 07:09 | DX: O99.891 Other specified diseases and conditions complicating pregnancy (principal); Z3A.17 17 weeks gestation of pregnancy | CPT/HCPCS: 99281 ==

== ENCOUNTER 2022-07-26 16:52 | Inpatient (IN) | payer MEDICAID ==
[2022-07-26] MEDS ORDERED: Ampicillin 2 GM in Sodium Chloride 0.9% 100 ML IV ONE (17:00)
[2022-07-26] MEDS ORDERED: Nalbuphine HCl 10 MG/ 1ML Amp IVPUSH PRN (17:03)
[2022-07-26] MEDS ORDERED: Sodium Chloride 0.9% 10 ML Syringe FLUSH PRN (17:03)
[2022-07-26] MEDS ORDERED: Ondansetron 4 MG/2 ML SDV IVPUSH PRN (17:03)
[2022-07-26] MEDS ORDERED: Oxytocin/Lactated Ringers 10 UNIT/1,000 ML BAG IV SCH (17:15)
[2022-07-26] MEDS ORDERED: fentaNYL 100 MCG/2 ML SDV EPIDUR PRN (17:30)
[2022-07-26] MEDS ORDERED: Bupivacaine/fentaNYL/NS 100 ML Bag EPIDUR PRN (17:30)
[2022-07-26] MEDS ORDERED: diphenhydrAMINE 50 MG/ML SDV IVPUSH PRN (17:30)
[2022-07-26] MEDS ORDERED: ePHEDrine 50 MG/ML SDV IVPUSH PRN (17:30)
[2022-07-26] MEDS: Lactated Ringers 1,000 ML IV SCH ×2 (17:45→18:43)
[2022-07-26] MEDS ORDERED: Ampicillin 1 GM in Sodium Chloride 0.9% 100 ML IV SCH (21:00)
[2022-07-26] MEDS ORDERED: Sodium Chloride 0.9% 10 ML Syringe FLUSH SCH (21:00)
[2022-07-27] MEDS ORDERED: Benzocaine/Menthol 20%-0.5% Spray 78 GM Cannister TOP PRN (02:23)
[2022-07-27] MEDS ORDERED: Docusate Sodium 100 MG Cap PO PRN (02:23)
[2022-07-27] MEDS ORDERED: Witch Hazel Medicated Pads 40/Jar TOP PRN (02:23)
[2022-07-27] MEDS ORDERED: Acetaminophen 325 MG Tab PO PRN (02:23)
[2022-07-27] MEDS: Ibuprofen 600 MG Tab PO PRN ×2 (08:41→14:52)
[2022-07-28] MEDS ORDERED: Measles, Mumps & Rubella Vaccine 0.5 ML SDV SUBCUT ONE (07:00)
== END 2022-07-28 10:32 | disposition home or self-care (01) | DRG 807 ==
LOC: JD.OB 16:52 → JD.OBCHECK 16:52 → JD.OB 17:03 → OBSVTOIN 07-27 01:23 → JD.OB 07-27 01:24
PROVIDERS: ADMIT Obstetrics & Gynecology; ATTEND Obstetrics & Gynecology
PROC: 10E0XZZ Delivery of Products of Conception, External Approach (ICD-10-PCS; principal; 2022-07-27)
PROC: 10907ZC Drainage of Amniotic Fluid, Therapeutic from Products of Conception, Via Natural or Artificial Opening (ICD-10-PCS; 2022-07-27)
PROC: 3E0R3BZ Introduction of Anesthetic Agent into Spinal Canal, Percutaneous Approach (ICD-10-PCS; 2022-07-27)
PROC: 00HU33Z Insertion of Infusion Device into Spinal Canal, Percutaneous Approach (ICD-10-PCS; 2022-07-27)
DX: O99.62 Diseases of the digestive system complicating childbirth (principal); Z37.0 Single live birth; K21.9 Gastro-esophageal reflux disease without esophagitis; O99.02 Anemia complicating childbirth; D64.9 Anemia, unspecified; Z3A.38 38 weeks gestation of pregnancy
CPT/HCPCS: 36410; 36415; 51702; 59025; 59409; 85027; 86592; 86850; 86900; 86901; A9270-GY; J0290; J2590; J3010; J7120

== ENCOUNTER 2023-06-26 20:26 | Emergency (ER) | payer MEDICAID ==
[2023-06-26 21:00] LABS: APPEARANCE,URINE CLEAR (Clear); BILIRUBIN,URINE NEGATIVE (Negative); COLOR,URINE YELLOW (Yellow); GLUCOSE,URINE NEGATIVE (Negative); KETONES,URINE NEGATIVE (Negative); LEUKOCYTE ESTERASE,URINE TRACE (Negative); NITRITE,URINE NEGATIVE (Negative); OCCULT BLOOD,URINE NEGATIVE (Negative); PROTEIN,URINE NEGATIVE (Negative)
[2023-06-26 21:06] LABS: BACTERIA,URINE FEW /hpf (FEW); MUCUS,URINE FEW /hpf (FEW); RBC,URINE 0-5 /hpf (0-5); WBC,URINE 0-5 /hpf (0-5)
== END 2023-06-26 21:50 | disposition home or self-care (01) ==
LOC: JD.ED 20:26
DX: O99.891 Other specified diseases and conditions complicating pregnancy (principal); N89.8 Other specified noninflammatory disorders of vagina; Z86.16 Personal history of COVID-19; Z79.899 Other long term (current) drug therapy; Z3A.15 15 weeks gestation of pregnancy
CPT/HCPCS: 0352U; 81001; 99283; 99282

== ENCOUNTER 2023-12-22 08:37 | Inpatient (IN) | payer MEDICAID ==
[~2023-12-22 08:37] MED LIST: Lidocaine 1% 10 ML MDV ONE
[2023-12-22] MEDS ORDERED: Nalbuphine HCl 10 MG/ 1ML Amp IVPUSH PRN (08:54)
[2023-12-22] MEDS ORDERED: Calcium Carbonate 500 MG Tab.Chew PO PRN (08:54)
[2023-12-22] MEDS ORDERED: Acetaminophen 325 MG Tab PO PRN ×2 (08:54→14:33)
[2023-12-22] MEDS ORDERED: Lidocaine 1% 50 ML MDV INJECT PRN (08:54)
[2023-12-22] MEDS ORDERED: Ondansetron 4 MG/2 ML SDV IVPUSH PRN (08:54)
[2023-12-22] MEDS: Lactated Ringers 1,000 ML IV SCH ×2 (08:55→09:58)
[2023-12-22] MEDS ORDERED: Ampicillin 2 GM in Sodium Chloride 0.9% 100 ML IV ONE (09:00)
[2023-12-22] MEDS ORDERED: Oxytocin/Lactated Ringers 30 UNIT/500 ML BAG IV SCH ×2 (09:00)
[2023-12-22 09:12] LABS: BASOPHILS PERCENT AUTO 0.2 % (0.0-1.0); EOSINOPHILS PERCENT AUTO 0.2 % (0.0-6.0); HEMATOCRIT 32.6 % (37.0-47.0); HEMOGLOBIN 9.9 gm/dl (12.0-16.0); IMMATURE GRAN ABSOLUTE AUTO 0.03 K/mm3 (0.00-0.05); IMMATURE GRAN PERCENT AUTO 0.4 % (0.0-0.4); LYMPHOCYTES ABSOLUTE AUTO 2.9 K/mm3 (1.0-4.8); LYMPHOCYTES PERCENT AUTO 35.5 % (24.0-44.0); MEAN CORPUSCULAR HEMOGLOBIN 21.4 pg (28.0-32.0); MEAN CORPUSCULAR HGB CONC 30.4 g/dl (32.0-36.0); MEAN CORPUSCULAR VOLUME 70.4 fl (83.0-99.0); MEAN PLATELET VOLUME 8.8 fl (9.4-12.3); MONOCYTES ABSOLUTE AUTO 0.6 K/mm3 (0.0-0.8); MONOCYTES PERCENT AUTO 6.8 % (0.0-8.0); NEUTROPHILS ABSOLUTE AUTO 4.7 K/mm3 (1.8-7.7); NEUTROPHILS PERCENT AUTO 56.9 % (41.0-71.0); NRBC ABSOLUTE 0.02 (0.00-0.02); NRBC PERCENT 0.2 % (0.0-0.2); PLATELET COUNT,PLT 248 K/mm3 (150-400); RED BLOOD CELL COUNT 4.63 M/mm3 (4.10-5.30); WHITE BLOOD CELL COUNT,WBC 8.18 K/mm3 (3.9-11.3)
[2023-12-22] MEDS ORDERED: diphenhydrAMINE 50 MG/ML SDV IVPUSH PRN (09:16)
[2023-12-22] MEDS ORDERED: Bupivacaine/fentaNYL/NS 100 ML Bag EPIDUR PRN (09:16)
[2023-12-22] MEDS ORDERED: fentaNYL 100 MCG/2 ML SDV EPIDUR PRN (09:16)
[2023-12-22] MEDS ORDERED: ePHEDrine 50 MG/ML SDV IVPUSH PRN (09:16)
[2023-12-22] MEDS ORDERED: Ampicillin 1 GM in Sodium Chloride 0.9% 100 ML IV SCH (13:00)
[2023-12-22] MEDS ORDERED: Methylergonovine 0.2 MG/1 ML Amp IM ONE (14:06)
[2023-12-22] MEDS ORDERED: Benzocaine/Menthol 20%-0.5% Spray 78 GM Cannister TOP PRN (14:33)
[2023-12-22] MEDS ORDERED: Ibuprofen 600 MG Tab PO PRN (14:33)
[2023-12-22] MEDS ORDERED: Witch Hazel Medicated Pads 40/Jar TOP PRN (14:33)
[2023-12-22] MEDS ORDERED: Docusate Sodium 100 MG Cap PO PRN (14:33)
== END 2023-12-23 13:45 | disposition home or self-care (01) | DRG 807 ==
LOC: JD.OBCHECK 08:37 → JD.OB 08:42 → JD.OBCHECK 09:04 → OBSVTOIN 13:20 → JD.OB 13:20 → UNDODISOB 12-23 13:45
PROVIDERS: ADMIT Obstetrics & Gynecology; ATTEND Obstetrics & Gynecology
PROC: 10E0XZZ Delivery of Products of Conception, External Approach (ICD-10-PCS; principal; 2023-12-22)
PROC: 10907ZC Drainage of Amniotic Fluid, Therapeutic from Products of Conception, Via Natural or Artificial Opening (ICD-10-PCS; 2023-12-22)
PROC: 3E0R3BZ Introduction of Anesthetic Agent into Spinal Canal, Percutaneous Approach (ICD-10-PCS; 2023-12-22)
PROC: 00HU33Z Insertion of Infusion Device into Spinal Canal, Percutaneous Approach (ICD-10-PCS; 2023-12-22)
DX: O48.0 Post-term pregnancy (principal); Z37.0 Single live birth; Z3A.40 40 weeks gestation of pregnancy; Z87.891 Personal history of nicotine dependence; O99.62 Diseases of the digestive system complicating childbirth; K21.9 Gastro-esophageal reflux disease without esophagitis; Z86.16 Personal history of COVID-19; O99.824 Streptococcus B carrier state complicating childbirth; O77.0 Labor and delivery complicated by meconium in amniotic fluid; O69.81X0 Labor and delivery complicated by cord around neck, without compression, not applicable or unspecified
CPT/HCPCS: 36415; 51702; 59025; 59409; 85025; 86592; 86850; 86900; 86901; A9270-GY; J0290; J2210; J3010; J3490; J7120

== ENCOUNTER 2025-01-19 06:06 | Inpatient (IN) | payer MEDICAID ==
[2025-01-19] MEDS ORDERED: Ondansetron 4 MG/2 ML SDV IVPUSH PRN (06:28)
[2025-01-19] MEDS ORDERED: Calcium Carbonate 500 MG Tab.Chew PO PRN (06:28)
[2025-01-19] MEDS ORDERED: Lidocaine 1% 50 ML MDV INJECT PRN (06:28)
[2025-01-19] MEDS ORDERED: Nalbuphine 10 MG/1 ML Vial IVPUSH PRN (06:28)
[2025-01-19] MEDS ORDERED: Oxytocin/0.9 % Sodium Chloride 30 UNIT/500 ML BAG IV SCH (06:30)
[2025-01-19] MEDS: Lactated Ringers 1,000 ML IV SCH (06:37)
[2025-01-19] MEDS: Ampicillin 2 GM in Sodium Chloride 0.9% 100 ML IV ONE (06:48)
[2025-01-19 06:52] LABS: BASOPHILS PERCENT AUTO 0.2 % (0.0-1.0); EOSINOPHILS ABSOLUTE AUTO 0.1 K/mm3 (0.0-0.4); EOSINOPHILS PERCENT AUTO 0.5 % (0.0-6.0); HEMATOCRIT 34.7 % (37.0-47.0); HEMOGLOBIN 10.5 gm/dl (12.0-16.0); IMMATURE GRAN ABSOLUTE AUTO 0.03 K/mm3 (0.00-0.05); IMMATURE GRAN PERCENT AUTO 0.3 % (0.0-0.4); LYMPHOCYTES PERCENT AUTO 28.4 % (24.0-44.0); MEAN CORPUSCULAR HEMOGLOBIN 21.4 pg (28.0-32.0); MEAN CORPUSCULAR HGB CONC 30.3 g/dl (32.0-36.0); MEAN CORPUSCULAR VOLUME 70.7 fl (83.0-99.0); MONOCYTES ABSOLUTE AUTO 0.6 K/mm3 (0.0-0.8); MONOCYTES PERCENT AUTO 5.9 % (0.0-8.0); NEUTROPHILS ABSOLUTE AUTO 6.8 K/mm3 (1.8-7.7); NEUTROPHILS PERCENT AUTO 64.7 % (41.0-71.0); PLATELET COUNT,PLT 298 K/mm3 (150-400); RED BLOOD CELL COUNT 4.91 M/mm3 (4.10-5.30); WHITE BLOOD CELL COUNT,WBC 10.53 K/mm3 (3.9-11.3)
[2025-01-19] MEDS ORDERED: ePHEDrine 50 MG/ML SDV IVPUSH PRN (06:52)
[2025-01-19] MEDS ORDERED: diphenhydrAMINE 50 MG/ML SDV IVPUSH PRN (06:52)
[2025-01-19] MEDS: fentaNYL 100 MCG/2 ML SDV EPIDUR PRN (07:04)
[2025-01-19] MEDS: Bupivacaine/fentaNYL/NS 100 ML Bag EPIDUR PRN (07:06)
[2025-01-19] MEDS ORDERED: Docusate Sodium 100 MG Cap PO PRN (09:26)
[2025-01-19] MEDS ORDERED: Acetaminophen 325 MG Tab PO PRN (09:26)
[2025-01-19] MEDS: diphenhydrAMINE 50 MG/ML SDV IVPUSH PRN (10:12)
[2025-01-19] MEDS ORDERED: Ampicillin 1 GM in Sodium Chloride 0.9% 100 ML IV SCH (10:30)
[2025-01-19] MEDS: Ibuprofen 600 MG Tab PO SCH (11:28)
[2025-01-19] MEDS: Witch Hazel Medicated Pads 40/Jar TOP PRN (13:08)
[2025-01-19] MEDS: Benzocaine/Menthol 20%-0.5% Spray 78 GM Cannister TOP PRN (13:09)
[2025-01-20] MEDS: guaiFENesin 100 MG/5 ML Soln 10 ML UD Cup PO PRN (01:19)
[2025-01-20] MEDS: Benzocaine/Cetylpyridinium/Menthol Lozenge MUCMEM PRN (01:19)
== END 2025-01-21 13:15 | disposition home or self-care (01) | DRG 807 ==
LOC: JD.OBCHECK 06:06 → JD.OB 06:18 → JD.OBCHECK 06:28 → JD.OB 06:28 → OBSVTOIN 08:26
PROVIDERS: ADMIT Obstetrics & Gynecology; ATTEND Obstetrics & Gynecology
PROC: 10E0XZZ Delivery of Products of Conception, External Approach (ICD-10-PCS; principal; 2025-01-19)
PROC: 3E0R3BZ Introduction of Anesthetic Agent into Spinal Canal, Percutaneous Approach (ICD-10-PCS; principal; 2025-01-19)
DX: O99.344 Other mental disorders complicating childbirth (principal); Z37.0 Single live birth; O99.62 Diseases of the digestive system complicating childbirth; K21.9 Gastro-esophageal reflux disease without esophagitis; Z22.330 Carrier of Group B streptococcus; Z86.16 Personal history of COVID-19; Z98.890 Other specified postprocedural states; Z79.899 Other long term (current) drug therapy; Z3A.39 39 weeks gestation of pregnancy; Z72.0 Tobacco use
CPT/HCPCS: 36415; 51701; 59025; 59409; 85025; 86592; 86850; 86900; 86901; 87428-QW; A9270-GY; J0290; J1200; J3010; J3490; J7120